=== PATIENT | male | born 1965 | race Caucasian/White ===

== ENCOUNTER → 2018-05-29 | Outpatient (CLI) | payer OTHER ==
[~2018-05-29] MED LIST: CELEXA20 MG PO; CEPHALEXIN500 M1 PO; HYDROCODONE BIT1 T11 PO; MOTRIN800 MG PO; PERCOCET 325 MG1 TA2 PO; PREDNISONE20 MG PO; TRAMADOL HCL50 MG PO; ULTRAM50 MG PO; [UNRECOGNIZED DRUG - OTHER]
== END | disposition home or self-care (01) ==
LOC: US 09:39
DX: E78.5 Hyperlipidemia, unspecified (principal); Z87.891 Personal history of nicotine dependence

== ENCOUNTER 2024-12-05 11:15 | Emergency (ER) | payer OTHER ==
[~2024-12-05] VITALS: Ht 170.1 cm; Wt 81.6 kg
[2024-12-05] MEDS ORDERED: PREDNISONE20 M1 PO (11:47)
== END 2024-12-05 11:49 | disposition home or self-care (01) ==
LOC: ED 11:15
DX: M54.41 Lumbago with sciatica, right side (principal); F32.A Depression, unspecified; F41.9 Anxiety disorder, unspecified; Z98.890 Other specified postprocedural states

== ENCOUNTER → 2024-12-23 | Outpatient (CLI) | payer OTHER ==
[~2024-12-23] MED LIST changes: +PREDNISONE20 M1 PO
== END | disposition home or self-care (01) ==
LOC: MRI 15:10
PROVIDERS: ATTEND Nurse Practitioner Family
DX: M47.814 Spondylosis without myelopathy or radiculopathy, thoracic region (principal); M25.78 Osteophyte, vertebrae; M54.6 Pain in thoracic spine